=== PATIENT | female | born 1980 | race Caucasian/White ===

== ENCOUNTER 2016-06-26 19:02 | Emergency (ER) | payer OTHER ==
[~2016-06-26] VITALS: Ht 160 cm; Wt 51.1 kg
[~2016-06-26 19:02] MED LIST: CIPRO500 MG PO; DOXYCYCLINE HY100 MG PO; IBUPROFEN800 MG PO; PERCOCET 5/31 TABLET PO; TOPAMAX200 MG PO; ULTRAM50 MG PO
[2016-06-26 20:13] LABS: HEMATOCRIT 42.1 % (36.0-46.0); MCH 30.2 PG (29.0-34.0); MCHC 35.6 G/DL (30.0-36.0); MCV 84.9 FL (83-99); MEAN PLAT.VOLUME 9.4 uM^3 (9.5-12.4); PLATELET COUNT 269 K/uL (156-360); RBC DIS.WIDTH-CV 12.5 % (11.8-14.6); RBC DIS.WIDTH-SD 37.7 % (39-53); RED BLOOD COUNT 4.96 M/uL (3.80-5.20)
[2016-06-26 20:22] LABS: WHITE BLOOD COUNT 14.4 K/uL (4.1-10.2)
[2016-06-26 20:25] LABS: CHLORIDE 114 mEq/L (99-109); POTASSIUM 3.6 mEq/L (3.7-5.4); SODIUM 143 mEq/L (136-147)
[2016-06-26 20:27] LABS: GLUCOSE 88 mg/dL (70-99)
[2016-06-26 20:28] LABS: ANION GAP 8 MEQ/L (2-14)
[2016-06-26 20:29] LABS: TOTAL BILIRUBIN 0.2 mg/dL (0.0-1.0)
[2016-06-26 20:30] LABS: ALKALINE PHOSPHATASE 82 IU/L (3-129)
[2016-06-26 20:31] LABS: GFR ESTIMATE (CALCULATED) > 59 mL/min/
[2016-06-26 20:32] LABS: UREA NITROGEN (BUN) 11 mg/dL (9-23)
[2016-06-26 20:44] LABS: QUANTITATIVE HCG < 4.0 MIU/ML
[2016-06-26 22:22] VITALS: BP 132/92
== END 2016-06-26 22:25 | disposition home or self-care (01) ==
LOC: EME 19:02 → EXP 19:02
PROVIDERS: Physician Assistant
DX: R51 Headache (principal); G40.909 Epilepsy, unspecified, not intractable, without status epilepticus; F17.200 Nicotine dependence, unspecified, uncomplicated
CPT/HCPCS: 70450; 80053; 84702; 85027; 99281; 99284; J7030

== ENCOUNTER 2017-06-26 20:00 | Emergency (ER) | payer OTHER ==
[~2017-06-26] VITALS: Ht 162.6 cm; Wt 54.7 kg
[2017-06-26 20:41] LABS: HEMATOCRIT 45.8 % (36.0-46.0); HEMOGLOBIN 16.1 G/DL (11.9-15.5); MCH 30.4 PG (29.0-34.0); MCHC 35.2 G/DL (30.0-36.0); MCV 86.4 FL (83-99); PLATELET COUNT 215 K/uL (156-360); RBC DIS.WIDTH-SD 38.2 % (39-53); WHITE BLOOD COUNT 8.1 K/uL (4.1-10.2)
[2017-06-26 20:46] LABS: ALBUMIN 4.6 g/dL (3.2-4.8); CHLORIDE 107 mEq/L (99-109); POTASSIUM 3.7 mEq/L (3.7-5.4); SODIUM 137 mEq/L (136-147)
[2017-06-26 20:49] LABS: GLUCOSE 97 mg/dL (70-99); TOTAL PROTEIN 7.4 g/dL (6.4-8.3)
[2017-06-26 20:51] LABS: TOTAL BILIRUBIN 0.5 mg/dL (0.0-1.0)
[2017-06-26 20:52] LABS: ALKALINE PHOSPHATASE 95 IU/L (3-129); CREATININE 0.8 mg/dL (0.6-1.3); GFR ESTIMATE (CALCULATED) > 59 mL/min/
[2017-06-26 20:53] LABS: UREA NITROGEN (BUN) 15 mg/dL (9-23)
[2017-06-26 20:54] LABS: AST (GOT) 26 IU/L (2-34)
[2017-06-26 20:55] LABS: ALT (GPT) 34 IU/L (3-49)
[2017-06-26 21:45] LABS: APPEARANCE SL.HAZY ((CLEAR)); BILIRUBIN NEGATIVE; BLOOD NEGATIVE; COLOR YELLOW ((YELLOW)); GLUCOSE (STRIP) NEGATIVE; KETONES NEGATIVE; LEUKOCYTES NEGATIVE; NITRITE NEGATIVE; PROTEIN (STRIP) NEGATIVE; SPECIFIC GRAVITY 1.019 (1.000-1.030); UROBILINOGEN 0.2 MG/DL (0.2-1.0)
[2017-06-26 21:50] LABS: BACTERIA NONE SEEN /HPF; EPITHELIAL CELLS 1+ /HPF; MUCUS TRACE /LPF; RED BLOOD CELLS 0-5 /HPF (0-5); UCUL ADDED? NO; WHITE BLOOD CELLS 0-5 /HPF (0-5)
[2017-06-27] MEDS ORDERED: ZOFRAN4 MG SL (00:49)
[2017-06-27 02:20] VITALS: BP 115/65
== END 2017-06-27 02:21 | disposition home or self-care (01) ==
LOC: EME 20:00
DX: R11.2 Nausea with vomiting, unspecified (principal); R19.7 Diarrhea, unspecified; K21.9 Gastro-esophageal reflux disease without esophagitis; F17.200 Nicotine dependence, unspecified, uncomplicated; R56.9 Unspecified convulsions; J45.909 Unspecified asthma, uncomplicated; Z90.49 Acquired absence of other specified parts of digestive tract; Z88.6 Allergy status to analgesic agent
CPT/HCPCS: 74177; 80053; 81003; 85027; 99281; 99284; J1885; J2405; J2765; J7030